=== PATIENT | male | born 1975 | race Caucasian/White ===

== ENCOUNTER 2018-12-13 13:19 | Emergency (ER) | payer OTHER ==
[2018-12-13 15:04] VITALS: BP 114/69
--- NOTE | 2018-12-13 15:13 | UC ---
Lower Extremity/Ankle HPI - HPI Summary HPI Summary: rolled left ankle this morning at 9:30 while running--landed awkwardly on top of foot----currently has pain across the top of the foot and ankle pain - History of Current Complaint Chief Complaint: UCLowerExtremity Stated Complaint: L ANKLE INJ Time Seen by Provider: 12/13/18 15:07 Hx Obtained From: Patient Onset/Duration: Sudden Onset, Lasting Hours - 6 Pain Intensity: 4 Pain Scale Used: 0-10 Numeric Aggravating Factor(s): Standing, Ambulation Alleviating Factor(s): Rest, Elevation Able to Bear Weight: Yes - Allergies/Home Medications Allergies/Adverse Reactions: Allergies Allergy/AdvReac Type Severity Reaction Status Date / Time No Known Allergies Allergy Verified 12/13/18 15:04 Home Medications: Home Medications NK [No Home Medications Reported] 12/13/18 [History Confirmed 12/13/18] PMH/Surg Hx/FS Hx/Imm Hx Previously Healthy: Yes - Surgical History Surgical History: Yes Surgery Procedure, Year, and Place: appendectomy - Family History Known Family History: Positive: None - Social History Occupation: Employed Full-time Lives: With Family Alcohol Use: Daily Alcohol Amount: 2 Substance Use Type: None Smoking Status (MU): Never Smoked Tobacco - Immunization History Most Recent Tetanus Shot: 2008? Review of Systems All Other Systems Reviewed And Are Negative: Yes Constitutional: Positive: Negative Skin: Positive: Negative Eyes: Positive: Negative ENT: Positive: Negative Respiratory: Positive: Negative Cardiovascular: Positive: Negative Gastrointestinal: Positive: Negative Genitourinary: Positive: Negative Motor: Positive: Negative Neurovascular: Positive: Negative Musculoskeletal: Positive: Arthralgia - across top of left foot Neurological: Positive: Negative Psychological: Positive: Negative Is Patient Immunocompromised?: No Physical Exam Triage Information Reviewed: Yes Appearance: Well-Appearing, No Pain Distress, Well-Nourished Vital Signs: Initial Vital Signs Temp 99.1 F 12/13/18 15:00 Pulse 67 12/13/18 15:00 Resp 16 12/13/18 15:00 BP 114/69 12/13/18 15:00 Pulse Ox 100 12/13/18 15:00 Vital Signs Reviewed: Yes Eye Exam: Normal Eyes: Positive: Conjunctiva Clear ENT Exam: Normal ENT: Positive: Normal ENT inspection, Hearing grossly normal. Negative: Trismus , Muffled voice, Hoarse voice Dental Exam: Normal Neck exam: Normal Neck: Positive: Supple, Nontender Respiratory Exam: Normal Respiratory: Positive: Chest non-tender, No respiratory distress, No accessory muscle use Cardiovascular Exam: Normal Cardiovascular: Positive: RRR, Pulses Normal, Brisk Capillary Refill Musculoskeletal Exam: Normal Musculoskeletal: Positive: Strength Intact, ROM Intact, No Edema Neurological Exam: Normal Neurological: Positive: Alert, Muscle Tone Normal Psychological Exam: Normal Skin Exam: Normal Diagnostics - Radiology No standard instances Radiology Interpretation Completed By: ED Physician - no evidence of fracture, Radiologist - no fracture Lower Extremity Course/Dx - Course Course Of Treatment: cam boot, crutches, rice, follow with [facility] Orthopedics---wb as tolerated - Differential Dx/Diagnosis Provider Diagnosis: Contusion of left foot, initial encounter Discharge ED - Sign-Out/Discharge Documenting (check all that apply): Patient Departure All imaging exams completed and their final reports reviewed: Yes - Discharge Plan Condition: Stable Disposition: HOME Patient Education Materials: Ibuprofen (By mouth), Foot Sprain (ED), R.I.C.E. Treatment (ED) Referrals: Kel Covington MD [Medical Doctor] - 3 Days - Billing Disposition and Condition Condition: STABLE Disposition: Home
== END 2018-12-13 16:05 | disposition home or self-care (01) ==
LOC: UCEAST 13:19
DX: S90.32XA Contusion of left foot, initial encounter (principal); X58.XXXA Exposure to other specified factors, initial encounter; Y93.02 Activity, running; Y92.9 Unspecified place or not applicable
CPT/HCPCS: 99203; G0463